=== PATIENT | female | born 1995 | race Caucasian/White ===

== ENCOUNTER → 2017-09-04 | Outpatient (CLI) | payer OTHER | END | disposition home or self-care (01) | LOC: C.PAPS 17:53 | PROVIDERS: ATTEND Physician Assistant | DX: Z01.419 Encounter for gynecological examination (general) (routine) without abnormal findings (principal) ==

== ENCOUNTER 2017-10-15 14:03 | Emergency (ER) | payer OTHER ==
[~2017-10-15] VITALS: Ht 170.2 cm; Wt 70.4 kg
[2017-10-15 14:10] VITALS: TEMP 36.8; Ht 170.2 cm; Wt 70.4 kg
[2017-10-15] MEDS ORDERED: SODIUM CHLORIDE 0.9% 1000ML 1,000 ML IV STA (15:39)
[2017-10-15] MEDS ORDERED: DiphenhydrAMINE HCL 50 MG/ML VIAL IV STA (15:39)
[2017-10-15] MEDS ORDERED: PROCHLORPERAZINE 5 MG/ML 2 ML VIAL IV STA (15:39)
--- NOTE | 2017-10-15 15:44 | EMERGENCY ROOM VISIT NOTE ---
History Report prepared by Axel: Julieta Camarena Under the Supervision of: Dr. Kristin Carson M.D. First contact with patient: 15:28 Chief Complaint: HEADACHE Stated Complaint: CHENEY,HIGH BP FEEL WEAK History of Present Illness The patient is a 22 year old female who presents to the Emergency Room with complaints of a severe headache at the front of her head last night. The patient states that she could not move her eyes right or left or do a sudden movement because of the pain. She reports that she just finished watching a movie when the headache started. She states that she took Advil for her pain which helped to alleviate the pain enough that she was able to fall asleep. The patient denies vomiting last night. She states that she then had another headache this morning at the bottom of her head. Her mother reports that the patient's blood pressure was 176/90 today and that the patient was short of breath. The patient denies having palpitations and chest pain. She also denies recent travel. The patient reports a family history of blood clots and that her aunt in her 40's from a pulmonary embolism. The patient states that she recently started control pills. She denies a history of smoking. Source of History: patient, parent (mother) Onset: last night Position: head Symptom Intensity: severe Quality: other (headache) Associated Symptoms: + SOB, No chest pain, No vomiting Review of Systems See HPI for pertinent positives & negatives. A total of 10 systems reviewed and were otherwise negative. Past Medical & Surgical Medical Problems: (1) No active medical problems Family History Blood clots Social History Smoking Status: Never Smoker Marital Status: single Housing Status: lives with family Occupation Status: employed Current/Historical Medications Scheduled Control Pills ( Control Pills), 1 TAB PO DAILY Cetirizine (Zyrtec), 10 MG PO DAILY Fluoxetine (Prozac), 40 MG PO DAILY Allergies Coded Allergies: Sulfa Drugs (Unverified Allergy, Mild, 2/5/10) Sulfamethoxazole (Unverified Allergy, Mild, 2/5/10) Trimethoprim (Unverified Allergy, Mild, 2/5/10) Physical Exam Vital Signs Date Time Temp Pulse Resp B/P (MAP) Pulse Ox O2 Delivery O2 Flow Rate FiO2 10/15/17 19:00 74 16 106/67 100 Room Air 10/15/17 17:37 67 17 120/72 98 Room Air 10/15/17 16:45 79 10/15/17 15:55 17 124/69 98 Room Air 10/15/17 14:10 36.8 98 18 127/83 99 Room Air Physical Exam Vital signs reviewed. General: Well-appearing female, in no significant distress. No meningeal signs. HEENT: No scleral icterus, PERRLA, neck supple. Atraumatic. Cardiovascular: Regular rate and rhythm, no extra sounds. Pulmonary: Clear to auscultation bilaterally, normal work of breathing. Abdomen: Soft, nontender, nondistended, positive bowel sounds. Musculoskeletal: Atraumatic, no peripheral edema. Neurologic: Patient awake alert and oriented x 3, full strength in all 4 extremities. Cranial nerves 2 through 12 grossly intact. Skin: Warm, dry, no rash Medical Decision & Procedures ER Provider Diagnostic Interpretation: Radiology results as stated below per my review and radiologist interpretation: CT OF THE HEAD WITHOUT CONTRAST CLINICAL HISTORY: Headache. COMPARISON STUDY: No previous studies for comparison. CT DOSE: 537.48 mGy.cm TECHNIQUE: Helical axial images of the head were obtained without IV contrast. Automated exposure control was utilized for the study. A dose lowering technique was utilized adhering to the principles of ALARA. FINDINGS: No acute intracranial hemorrhage, midline shift or mass effect is present. Brain volume is normal. Ventricular system is unremarkable. Basilar cisterns are patent. There are no extra-axial collections. Keller-white differentiation is maintained. There are no findings to suggest acute dural sinus thrombosis or acute territorial infarct. There are no significant calvarial abnormalities. Visualized portions of the sinuses and mastoid air cells are clear. IMPRESSION: No acute intracranial findings. Electronically signed by: Christiano Chandler M.D. 10/15/2017 4:24 PM Dictated Date/Time: 10/15/2017 4:[address] ANGIOGRAPHY OF THE CHEST, PULMONARY EMBOLUS PROTOCOL CLINICAL HISTORY: Chest pain, shortness of breath and elevated d-dimer. COMPARISON STUDY: No previous studies for comparison. TECHNIQUE: Following IV administration of 72 mL of Optiray-320, helical axial images of the chest were obtained utilizing the pulmonary embolus protocol. Maximal intensity projections and sagittal and coronal reformats were viewed on an independent 3D workstation. IV contrast was administered without complication. A dose lowering technique was utilized adhering to the principles of ALARA. CT DOSE: 202.06 mGy.cm FINDINGS: No pulmonary emboli are identified. There is no evidence of thoracic aortic dissection. The size of the heart is normal. There is no pericardial effusion. No enlarged thoracic lymph nodes are present. Central airways are patent. No pneumothorax or pleural effusion is present. No consolidation is identified. Bony thorax and upper abdomen are unremarkable. IMPRESSION: 1. No pulmonary emboli identified. 2. No acute intrathoracic findings. Electronically signed by: Christiano Chandler M.D. 10/15/2017 5:34 PM Dictated Date/Time: 10/15/2017 5:26 PM BILATERAL LOWER EXTREMITY VENOUS DOPPLER CLINICAL HISTORY: Elevated d-dimer. Shortness of breath. COMPARISON STUDY: No previous studies for comparison. TECHNIQUE: Sonography of the deep venous system of the bilateral lower extremities was performed. Compression and augmentation were evaluated. FINDINGS: The bilateral common femoral, superficial femoral and popliteal veins were compressible. Augmentation was normal. Flow was shown within the deep calf vessels. IMPRESSION: No evidence of deep venous thrombus within the bilateral lower extremities. Electronically signed by: Christiano Chandler M.D. 10/15/2017 6:41 PM Dictated Date/Time: 10/15/2017 6:40 PM Laboratory Results 10/15/17 15:56 Red Blood Count 4.46, Mean Corpuscular Volume 89.0, Mean Corpuscular Hemoglobin 32.1, Mean Corpuscular Hemoglobin Concent 36.0, Mean Platelet Volume 10.6, Neutrophils (%) (Auto) 66.7, Lymphocytes (%) (Auto) 21.6, Monocytes (%) (Auto) 9.8, Eosinophils (%) (Auto) 0.3, Basophils (%) (Auto) 1.6, Neutrophils # (Auto) 2.10, Lymphocytes # (Auto) 0.68, Monocytes # (Auto) 0.31, Eosinophils # (Auto) 0.01, Basophils # (Auto) 0.05 10/15/17 15:56 Test 10/15/17 15:56 10/15/17 17:40 White Blood Count 3.15 K/uL (4.8-10.8) Red Blood Count 4.46 M/uL (4.2-5.4) Hemoglobin 14.3 g/dL (12.0-16.0) Hematocrit 39.7 % (37-47) Mean Corpuscular Volume 89.0 fL (80-100) Mean Corpuscular Hemoglobin 32.1 pg (25-34) Mean Corpuscular Hemoglobin Concent 36.0 g/dl (32-36) Platelet Count 204 K/uL (130-400) Mean Platelet Volume 10.6 fL (7.4-10.4) Neutrophils (%) (Auto) 66.7 % Lymphocytes (%) (Auto) 21.6 % Monocytes (%) (Auto) 9.8 % Eosinophils (%) (Auto) 0.3 % Basophils (%) (Auto) 1.6 % Neutrophils # (Auto) 2.10 K/uL (1.4-6.5) Lymphocytes # (Auto) 0.68 K/uL (1.2-3.4) Monocytes # (Auto) 0.31 K/uL (0.11-0.59) Eosinophils # (Auto) 0.01 K/uL (0-0.5) Basophils # (Auto) 0.05 K/uL (0-0.2) RDW Standard Deviation 39.0 fL (36.4-46.3) RDW Coefficient of Variation 12.1 % (11.5-14.5) Immature Granulocyte % (Auto) 0.0 % Immature Granulocyte # (Auto) 0.00 K/uL (0.00-0.02) D-Dimer 4090 ug/L FEU (0-500) Anion Gap 5.0 mmol/L (3-11) Est Creatinine Clear Calc Drug Dose 93.5 ml/min Estimated GFR () 103.1 Estimated GFR (Non- 88.9 BUN/Creatinine Ratio 7.6 (10-20) Calcium Level 8.7 mg/dl (8.5-10.1) Magnesium Level 2.0 mg/dl (1.8-2.4) Total Bilirubin 0.3 mg/dl (0.2-1) Direct Bilirubin < 0.1 mg/dl (0-0.2) Aspartate Amino Transf (AST/SGOT) 39 U/L (15-37) Alanine Aminotransferase (ALT/SGPT) 35 U/L (12-78) Alkaline Phosphatase 60 U/L (45-117) Total Protein 7.7 gm/dl (6.4-8.2) Albumin 3.7 gm/dl (3.4-5.0) Thyroid Stimulating Hormone (TSH) 1.030 uIu/ml (0.300-4.500) Urine Color YELLOW Urine Appearance CLEAR (CLEAR) Urine pH 6.5 (4.5-7.5) Urine Specific Emery 1.022 (1.000-1.030) Urine Protein NEG (NEG) Urine Glucose (UA) NEG (NEG) Urine Ketones NEG (NEG) Urine Occult Blood NEG (NEG) Urine Nitrite NEG (NEG) Urine Bilirubin NEG (NEG) Urine Urobilinogen NEG (NEG) Urine Leukocyte Esterase NEG (NEG) Laboratory results per my review. Medications Administered Medications (Trade) Dose Ordered Sig/Lore Route Start Time Stop Time Status Last Admin Dose Admin Sodium Chloride 1,000 ml @ 999 mls/hr Q1H1M STAT IV 10/15/17 15:39 10/15/17 16:39 DC 10/15/17 16:23 999 MLS/HR Prochlorperazine Edisylate (Compazine Inj) 5 mg NOW STAT IV 10/15/17 15:39 10/15/17 15:43 DC 10/15/17 16:23 5 MG Diphenhydramine HCl (Benadryl Inj) 25 mg NOW STAT IV 10/15/17 15:39 10/15/17 15:43 DC 10/15/17 16:24 25 MG ED Course 1536: Past medical records reviewed. The patient was evaluated in room B5. A complete history and physical examination was performed. 1539: Ordered Benadryl Inj 25 mg IV, Compazine Inj 5 mg IV, Sodium Chloride 1, 000 ml @ 999 mls/hr IV. 1725: Upon reevaluation, the patient appeared to have improvement of her symptoms. I discussed findings with her. She verbalized agreement of the treatment plan. She was discharged home. Medical Decision Differential Diagnoses: Intracranial hemorrhage, intracranial mass, migraine headache, tension headache , sinusitis, meningitis This patient was evaluated and appeared to be in no significant distress. IV access was obtained and laboratory work was drawn. CT scan of the head was performed and is negative for acute intracranial process. Laboratory work reveals an elevated d-dimer. CT scan of the chest was performed and is negative for PE. Dopplers of the bilateral lower extremities are negative. Patient was feeling improved after 1 L of normal saline solution, IV Compazine and Benadryl. Patient was reevaluated and advised of the findings. She is feeling much improved. She was discharged with care of her mother and will follow-up with her physician for reevaluation. She will return to the ER for worsening of symptoms or any medical concerns. Medication Reconcilliation Current Medication List: was personally reviewed by me Blood Pressure Screening Patient's blood pressure: Normal blood pressure Impression Primary Impression: Shortness of breath Additional Impression: Headache Scribe Attestation The scribe's documentation has been prepared under my direction and personally reviewed by me in its entirety. I confirm that the note above accurately reflects all work, treatment, procedures, and medical decision making performed by me. Departure Information Dispostion Home / Self-Care Referrals Raphael Diallo M.D. (PCP) Forms HOME CARE DOCUMENTATION FORM, IMPORTANT VISIT INFORMATION Patient Instructions [facility] Additional Instructions Diagnosis: Shortness of breath, headache Please drink plenty of clear fluids. Ibuprofen 600 mg every 6 hours as needed for pain or fever with food. Tylenol 650 mg every 6 hours as needed for pain or fever. Follow-up with your physician this week for reevaluation. Return to the ER for worsening of symptoms or any medical concerns. Problem Qualifiers
[2017-10-15 16:05] LABS: BASO % 1.6 %; BASO ABS # 0.05 K/uL (0-0.2); COMPLETE YES; EOS % 0.3 %; HEMATOCRIT 39.7 % (37-47); LYMPH % 21.6 %; LYMPH ABS # 0.68 K/uL (1.2-3.4); MEAN CORPUSCULAR HEMOGLOBIN 32.1 pg (25-34); MEAN PLATELET VOLUME 10.6 fL (7.4-10.4); MONO % 9.8 %; NEUT % 66.7 %; PLATELET COUNT 204 K/uL (130-400); RED BLOOD COUNT 4.46 M/uL (4.2-5.4); WHITE BLOOD COUNT 3.15 K/uL (4.8-10.8)
[2017-10-15] MEDS ORDERED: BCPILLS PO (16:07)
[2017-10-15] MEDS ORDERED: CETI10TA84 PO (16:07)
[2017-10-15] MEDS ORDERED: FLUO40CA8 PO (16:07)
--- NOTE | 2017-10-15 16:25 | DIAGNOSTIC IMAGING REPORT ---
CT OF THE HEAD WITHOUT CONTRAST CLINICAL HISTORY: Headache. COMPARISON STUDY: No previous studies for comparison. CT DOSE: 537.48 mGy.cm TECHNIQUE: Helical axial images of the head were obtained without IV contrast. Automated exposure control was utilized for the study. A dose lowering technique was utilized adhering to the principles of ALARA. FINDINGS: No acute intracranial hemorrhage, midline shift or mass effect is present. Brain volume is normal. Ventricular system is unremarkable. Basilar cisterns are patent. There are no extra-axial collections. Keller-white differentiation is maintained. There are no findings to suggest acute dural sinus thrombosis or acute territorial infarct. There are no significant calvarial abnormalities. Visualized portions of the sinuses and mastoid air cells are clear. IMPRESSION: No acute intracranial findings. Electronically signed by: Christiano Chandler M.D. 10/15/2017 4:24 PM Dictated Date/Time: 10/15/2017 4:22 PM
[2017-10-15 16:36] LABS: ALT/SGPT 35 U/L (12-78); AST/SGOT 39 U/L (15-37); BLOOD UREA NITROGEN 7 mg/dl (7-18); BUN/CREATININE RATIO 7.6 (10-20); CALCIUM 8.7 mg/dl (8.5-10.1); CARBON DIOXIDE 25 mmol/L (21-32); CHLORIDE 105 mmol/L (98-107); CREATININE 0.91 mg/dl (0.60-1.20); GLUCOSE 86 mg/dl (70-99); POTASSIUM 3.7 mmol/L (3.5-5.1); SODIUM 135 mmol/L (136-145)
[2017-10-15 16:47] LABS: ALKALINE PHOSPHATASE 60 U/L (45-117)
[2017-10-15] MEDS ORDERED: OPTIRAY 320 IV PRN (17:00)
--- NOTE | 2017-10-15 17:35 | DIAGNOSTIC IMAGING REPORT ---
CT ANGIOGRAPHY OF THE CHEST, PULMONARY EMBOLUS PROTOCOL CLINICAL HISTORY: Chest pain, shortness of breath and elevated d-dimer. COMPARISON STUDY: No previous studies for comparison. TECHNIQUE: Following IV administration of 72 mL of Optiray-320, helical axial images of the chest were obtained utilizing the pulmonary embolus protocol. Maximal intensity projections and sagittal and coronal reformats were viewed on an independent 3D workstation. IV contrast was administered without complication. A dose lowering technique was utilized adhering to the principles of ALARA. CT DOSE: 202.06 mGy.cm FINDINGS: No pulmonary emboli are identified. There is no evidence of thoracic aortic dissection. The size of the heart is normal. There is no pericardial effusion. No enlarged thoracic lymph nodes are present. Central airways are patent. No pneumothorax or pleural effusion is present. No consolidation is identified. Bony thorax and upper abdomen are unremarkable. IMPRESSION: 1. No pulmonary emboli identified. 2. No acute intrathoracic findings. Electronically signed by: Christiano Chandler M.D. 10/15/2017 5:34 PM Dictated Date/Time: 10/15/2017 5:26 PM
[2017-10-15 17:57] LABS: URINE APPEARANCE CLEAR (CLEAR); URINE BILIRUBIN NEG (NEG); URINE COLOR YELLOW; URINE NITRITE NEG (NEG); URINE PH 6.5 (4.5-7.5); URINE SPECIFIC GRAVITY 1.022 (1.000-1.030); UROBILINOGEN NEG (NEG); ZZUR CULT IF INDIC CLEAN CATCH NO
[2017-10-15 17:59] LABS: MANUAL MICROSCOPIC REQUIRED? NO; REVIEW REQ? NO
--- NOTE | 2017-10-15 18:42 | DIAGNOSTIC IMAGING REPORT ---
BILATERAL LOWER EXTREMITY VENOUS DOPPLER CLINICAL HISTORY: Elevated d-dimer. Shortness of breath. COMPARISON STUDY: No previous studies for comparison. TECHNIQUE: Sonography of the deep venous system of the bilateral lower extremities was performed. Compression and augmentation were evaluated. FINDINGS: The bilateral common femoral, superficial femoral and popliteal veins were compressible. Augmentation was normal. Flow was shown within the deep calf vessels. IMPRESSION: No evidence of deep venous thrombus within the bilateral lower extremities. Electronically signed by: Christiano Chandler M.D. 10/15/2017 6:41 PM Dictated Date/Time: 10/15/2017 6:40 PM
[2017-10-15 19:00] VITALS: BP 106/67; PULSE 74; O2SAT 100
== END 2017-10-15 19:25 | disposition home or self-care (01) ==
LOC: C.EDB 14:04
DX: R06.02 Shortness of breath (principal); R51 Headache; I10 Essential (primary) hypertension; Z82.49 Family history of ischemic heart disease and other diseases of the circulatory system; Z83.2 Family history of diseases of the blood and blood-forming organs and certain disorders involving the immune mechanism; Z79.3 Long term (current) use of hormonal contraceptives; Z79.899 Other long term (current) drug therapy

== ENCOUNTER → 2017-10-22 | Outpatient (CLI) | payer OTHER ==
[~2017-10-22] MED LIST: BCPILLS PO; CETI10TA84 PO; FLUO40CA8 PO
[2017-10-22 19:00] LABS: HEMATOCRIT 36.8 % (37-47); MEAN CELL VOLUME 89.3 fL (80-100); MEAN CORPUSCULAR HEMOGLOBIN 31.6 pg (25-34); MEAN CORPUSCULAR HGB CONC 35.3 g/dl (32-36); PLATELET COUNT 142 K/uL (130-400); RED CELL DISTRIBUTION WIDTH CV 12.5 % (11.5-14.5); RED CELL DISTRIBUTION WIDTH SD 40.2 fL (36.4-46.3); WHITE BLOOD COUNT 10.03 K/uL (4.8-10.8)
== END | disposition home or self-care (01) ==
LOC: C.LAB 17:27
PROVIDERS: ATTEND Nurse Practitioner Adult Health
DX: J02.9 Acute pharyngitis, unspecified (principal); R39.9 Unspecified symptoms and signs involving the genitourinary system

== ENCOUNTER → 2017-12-17 | Outpatient (CLI) | payer OTHER ==
--- NOTE | 2017-12-17 12:45 | DIAGNOSTIC IMAGING REPORT ---
CHEST 2 VIEWS ROUTINE HISTORY: 22 years-old Female R06.02 acute cough COMPARISON: Chest CT 10/15/2017 TECHNIQUE: PA and lateral views of the chest FINDINGS: Cardiomediastinal and hilar silhouettes are within normal limits. There is no pneumothorax, pleural effusion, focal airspace consolidation or overt pulmonary edema. Bones of the chest appear to be grossly intact. IMPRESSION: No acute process. The above report was generated using voice recognition software. It may contain grammatical, syntax or spelling errors. Electronically signed by: Ash Arce M.D. 12/17/2017 12:44 PM Dictated Date/Time: 12/17/2017 12:43 PM
[2017-12-17 13:11] LABS: BASO % 0.5 %; BASO ABS # 0.02 K/uL (0-0.2); EOS % 1.5 %; EOS ABS # 0.06 K/uL (0-0.5); HEMATOCRIT 42.2 % (37-47); HEMOGLOBIN 15.3 g/dL (12.0-16.0); LYMPH % 49.6 %; LYMPH ABS # 1.99 K/uL (1.2-3.4); MEAN CELL VOLUME 86.8 fL (80-100); MEAN CORPUSCULAR HEMOGLOBIN 31.5 pg (25-34); MEAN CORPUSCULAR HGB CONC 36.3 g/dl (32-36); MEAN PLATELET VOLUME 10.7 fL (7.4-10.4); MONO % 6.7 %; MONO ABS # 0.27 K/uL (0.11-0.59); NEUT % 41.7 %; NEUT ABS # 1.67 K/uL (1.4-6.5); PLATELET COUNT 322 K/uL (130-400); RED CELL DISTRIBUTION WIDTH CV 12.3 % (11.5-14.5); RED CELL DISTRIBUTION WIDTH SD 39.2 fL (36.4-46.3); WHITE BLOOD COUNT 4.01 K/uL (4.8-10.8)
[2017-12-17 13:58] LABS: ALBUMIN 4.4 gm/dl (3.4-5.0); ALT/SGPT 24 U/L (12-78); BLOOD UREA NITROGEN 9 mg/dl (7-18); CALCIUM 9.2 mg/dl (8.5-10.1); CARBON DIOXIDE 24 mmol/L (21-32); CREATININE 0.78 mg/dl (0.60-1.20); GLUCOSE 79 mg/dl (70-99); SODIUM 136 mmol/L (136-145)
[2017-12-17 14:10] LABS: ALKALINE PHOSPHATASE 62 U/L (45-117); AST/SGOT 23 U/L (15-37); TOTAL PROTEIN 8.4 gm/dl (6.4-8.2)
== END | disposition home or self-care (01) ==
LOC: C.LABBC 11:37
PROVIDERS: ATTEND Nurse Practitioner Adult Health
DX: R06.02 Shortness of breath (principal); R51 Headache; R53.83 Other fatigue; B27.90 Infectious mononucleosis, unspecified without complication; R79.89 Other specified abnormal findings of blood chemistry

== ENCOUNTER 2017-12-27 21:02 | Emergency (ER) | payer OTHER ==
[~2017-12-27] VITALS: Ht 170.2 cm; Wt 71.4 kg
[2017-12-27 21:09] VITALS: TEMP 36.7; Ht 170.2 cm; Wt 71.4 kg
[2017-12-27 21:55] LABS: BASO % 0.6 %; BASO ABS # 0.04 K/uL (0-0.2); EOS % 2.2 %; EOS ABS # 0.15 K/uL (0-0.5); HEMATOCRIT 41.8 % (37-47); HEMOGLOBIN 14.8 g/dL (12.0-16.0); LYMPH % 43.9 %; MEAN CELL VOLUME 88.2 fL (80-100); MEAN CORPUSCULAR HEMOGLOBIN 31.2 pg (25-34); MEAN CORPUSCULAR HGB CONC 35.4 g/dl (32-36); MEAN PLATELET VOLUME 10.1 fL (7.4-10.4); MONO % 7.8 %; MONO ABS # 0.53 K/uL (0.11-0.59); NEUT % 45.5 %; NEUT ABS # 3.11 K/uL (1.4-6.5); PLATELET COUNT 333 K/uL (130-400); RED CELL DISTRIBUTION WIDTH CV 12.3 % (11.5-14.5); RED CELL DISTRIBUTION WIDTH SD 39.6 fL (36.4-46.3); WHITE BLOOD COUNT 6.83 K/uL (4.8-10.8)
[2017-12-27 22:05] LABS: PTT PATIENT 25.2 SECONDS (21.0-31.0)
--- NOTE | 2017-12-27 22:05 | DIAGNOSTIC IMAGING REPORT ---
CHEST 2 VIEWS ROUTINE HISTORY: 22 years-old Female CHEST PAIN acute atypical chest pain COMPARISON: Chest radiographs 12/17/2017 TECHNIQUE: PA and lateral views of the chest FINDINGS: Cardiomediastinal and hilar silhouettes are within normal limits. There is no pneumothorax, pleural effusion, focal airspace consolidation or overt pulmonary edema. The bones of the chest appear grossly intact. IMPRESSION: No acute process. The above report was generated using voice recognition software. It may contain grammatical, syntax or spelling errors. Electronically signed by: Ash Arce M.D. 12/27/2017 10:04 PM Dictated Date/Time: 12/27/2017 10:03 PM
[2017-12-27 22:14] LABS: ALBUMIN 4.2 gm/dl (3.4-5.0); CALCIUM 8.9 mg/dl (8.5-10.1); CREATININE 0.8 mg/dl (0.60-1.20); POTASSIUM 3.6 mmol/L (3.5-5.1)
[2017-12-27 22:16] LABS: TOTAL PROTEIN 8.3 gm/dl (6.4-8.2)
--- NOTE | 2017-12-27 22:24 | DIAGNOSTIC IMAGING REPORT ---
L VENOUS DOPP LOWER EXT UNILAT HISTORY: 22 years-old Female L thigh cramping; hx elevated ddimer and recent extended travel acute left leg cramping COMPARISON: Duplex venous Doppler study 10/15/2017 TECHNIQUE: Multiple real-time sonographic images of the left lower extremity venous structures were obtained assessing grayscale appearance, color and spectral flow FINDINGS: There is normal flow, compressibility, phasicity and augmentation of the left lower extremity deep venous structures. IMPRESSION: No sonographic evidence of deep venous thrombosis. The above report was generated using voice recognition software. It may contain grammatical, syntax or spelling errors. Electronically signed by: Ash Arce M.D. 12/27/2017 10:23 PM Dictated Date/Time: 12/27/2017 10:22 PM
[2017-12-27 23:17] LABS: CKMB 2.4 ng/ml (0.5-3.6)
[2017-12-27 23:36] VITALS: BP 121/58; PULSE 70; O2SAT 98
--- NOTE | 2017-12-28 01:13 | EMERGENCY ROOM VISIT NOTE ---
ED Visit Note First contact with patient: 21:15 Chief Complaint: Left thigh pain. History of Present Illness: Ms. Caballero is a 22-year-old white female who ambulates into the ED accompanied by her mother complaining of left thigh pain. Historically patient reports in late September and early October she was having multiple upper respiratory tract symptoms. A d-dimer was performed and was elevated to 4000+. A chest CT was done and no deep vein thromboses were noted. She reported her symptoms resolved but she was warned that with an elevated d- dimer she was at increased risk for blood clots. She has noted that she continues to have mild shortness of breath since her symptoms. She was seen by her primary care provider before leaving on her trip and it was reported that all her laboratory tests were normal. Patient reports she just returned from spring in [place]. Patient reports approximately 3-4 days ago she started noting left thigh pain. She reports it was initially mild but has increased in intensity. She describes her discomfort as a cramping sensation. She places her discomfort over the anterior femur with occasional radiation of her pain into the posterior aspect. She currently rates her discomfort 3/10. Her pain worsens with palpation. She has not identified any alleviating factors related to the pain. She has not taken any medication for pain prior to arrival at the hospital. Associated with her pain intermittently she has paresthesias over the area of her pain. Additionally she does report she still experienced mild shortness of breath at rest and with activity. She has not treated her shortness of breath. She denies any recent direct or repetitive trauma, back pain, hip pain, knee pain, lower leg pain, calf pain, ankle/foot pain, hip, knee, ankle and foot weakness/numbness, fevers, chills, sweats, skin eruptions, skin color changes. Review of Systems: As noted above in history of present illness. 8 body systems were reviewed and found to be negative as noted above. Past Medical History: As previously noted, status post wisdom teeth extraction. Current Medications: control, Prozac, Zyrtec. Allergies to Medications: Sulfa, Bactrim. Social History: Patient is currently employed; she feels safe in her home environment; she denies tobacco use and admits to social alcohol use. Physical Examination: Vital Signs: Date Time Temp Pulse Resp B/P (MAP) Pulse Ox O2 Delivery O2 Flow Rate FiO2 12/27/17 23:36 70 18 121/58 98 12/27/17 22:39 67 18 110/65 100 Room Air 12/27/17 21:09 36.7 90 18 120/85 99 Room Air GENERAL: 22-year-old female in mild distress due to pain, nontoxic-appearing, afebrile and hemodynamically stable. NEUROLOGICAL: Awake, alert and oriented to person, place and time. Answering questions appropriately and following commands. Normal gait. Good hand eye coordination. No focal motor or sensory deficits. SKIN: Warm, dry and pink. No soft tissue eruptions or trauma noted. HEENT: Atraumatic and normocephalic. PERRLA. Oral cavity moist and pink. Pharynx is nonerythematous or edematous. Speech normal. No lymphadenopathy. Trachea midline. No jugular venous distention. BACK: No tenderness over the bony spine. THORAX: Lungs sounds are clear to auscultation and equal bilaterally with symmetrical chest wall. No wheezing, rales or rhonchi. No crepitus, tenderness , subcutaneous air or deformities noted. HEART: Regular rate and rhythm. No gallops, rubs or murmurs are appreciated. ABDOMEN: Flat, soft and nontender. Positive bowel sounds in all quadrants. No guarding, rigidity or organomegaly. LOWER EXTREMITIES: Moves all extremities well on command and with purpose. No tenderness over the hips, knees, lower legs, ankle or feet. Left: Mild tenderness over the anterior and posterior aspect of the distal thigh just prior to the knee. There is no local erythema or edema. Full range of motion in flexion and extension and abduction and abduction of the hip in flexion and extension of the knee against resistance. No palpable cords. All distal neurovascular statuses are intact and equal bilaterally. ED Course: Patient is assessed as noted above. Patient's medication list was reviewed. Laboratory Testing: Test 12/27/17 21:40 12/27/17 21:49 Range/Units White Blood Count 6.83 4.8-10.8 K/uL Red Blood Count 4.74 4.2-5.4 M/uL Hemoglobin 14.8 12.0-16.0 g/dL Hematocrit 41.8 37-47 % Mean Corpuscular Volume 88.2 80-100 fL Mean Corpuscular Hemoglobin 31.2 25-34 pg Mean Corpuscular Hemoglobin Concent 35.4 32-36 g/dl Platelet Count 333 130-400 K/uL Mean Platelet Volume 10.1 7.4-10.4 fL Neutrophils (%) (Auto) 45.5 % Lymphocytes (%) (Auto) 43.9 % Monocytes (%) (Auto) 7.8 % Eosinophils (%) (Auto) 2.2 % Basophils (%) (Auto) 0.6 % Neutrophils # (Auto) 3.11 1.4-6.5 K/uL Lymphocytes # (Auto) 3.00 1.2-3.4 K/uL Monocytes # (Auto) 0.53 0.11-0.59 K/uL Eosinophils # (Auto) 0.15 0-0.5 K/uL Basophils # (Auto) 0.04 0-0.2 K/uL RDW Standard Deviation 39.6 36.4-46.3 fL RDW Coefficient of Variation 12.3 11.5-14.5 % Immature Granulocyte % (Auto) 0.0 % Immature Granulocyte # (Auto) 0.00 0.00-0.02 K/uL Prothrombin Time 10.1 9.0-12.0 SECONDS Prothromb Time International Ratio 1.0 0.9-1.1 Activated Partial Thromboplast Time 25.2 21.0-31.0 SECONDS Partial Thromboplastin Ratio 1.0 Sodium Level 137 136-145 mmol/L Potassium Level 3.6 3.5-5.1 mmol/L Chloride Level 105 98-107 mmol/L Carbon Dioxide Level 27 21-32 mmol/L Anion Gap 5.0 3-11 mmol/L Blood Urea Nitrogen 9 7-18 mg/dl Creatinine 0.80 0.60-1.20 mg/dl Est Creatinine Clear Calc Drug Dose 106.4 ml/min Estimated GFR () 120.4 Estimated GFR (Non- 103.9 BUN/Creatinine Ratio 11.3 10-20 Random Glucose 78 70-99 mg/dl Calcium Level 8.9 8.5-10.1 mg/dl Total Bilirubin 0.4 0.2-1 mg/dl Direct Bilirubin 0.1 0-0.2 mg/dl Aspartate Amino Transf (AST/SGOT) 24 15-37 U/L Alanine Aminotransferase (ALT/SGPT) 23 12-78 U/L Alkaline Phosphatase 63 45-117 U/L Total Creatine Kinase 224 26-192 U/L Creatine Kinase MB 2.4 0.5-3.6 ng/ml Creatine Kinase MB Ratio 1.1 0-3.0 Total Protein 8.3 6.4-8.2 gm/dl Albumin 4.2 3.4-5.0 gm/dl Bedside D-Dimer 291 0-450 ng/mlFEU Bedside Troponin I < 0.030 0-0.045 ng/ml Chest X-Ray: Were read by myself and the radiologist showing no acute infiltrates, effusions or pneumothorax. Normal heart silhouette and bony anatomy. Compared to previous from November 2017 and no acute changes were noted. Left Lower Extremity Venous Doppler Ultrasound: Was reviewed by myself and read by the radiologist showing no sonographic evidence of deep vein thrombus. EKG: Was read by myself and shows normal sinus rhythm with a shortened NC interval. Ventricular rate [address] changes indicating ischemia, injury or infarction. An IV lock was initiated; patient was offered pain medication and refused. Patient was reassessed multiple times during her stay in the emergency department. Patient's case was reviewed with Dr. Zhang; we agreed on diagnostic approach, treatment, disposition and plan. Patient and mother were educated about today's findings and instructed on her treatment plan; they verbalized understanding and agreement with this plan. Clinical Impression: Left thigh pain. Decision-Making: Initially my differential diagnosis I considered deep vein thrombus, muscle strain, radiculopathy, thigh contusion, rhabdomyolysis and other causes. Disposition: Patient discharged home in stable condition accompanied by her mother; prior to departure she was reassessed and subjectively reported that she was pain and symptom-free. Plan: Comfort measures including rest, alternating ibuprofen and acetaminophen were discussed with the patient. Patient was encouraged to follow-up with her PCP for recheck and her slightly elevated CK. Patient was encouraged to return the ED for worsening/uncontrolled pain, worsening skin paresthesias, leg weakness/numbness, skin eruptions, fevers or any new/concerning symptoms.
== END 2017-12-27 23:37 | disposition home or self-care (01) ==
LOC: C.EDB 21:03 → C.EDC 23:37
DX: M79.652 Pain in left thigh (principal); Z79.3 Long term (current) use of hormonal contraceptives